=== PATIENT | female | born 1950 | race Caucasian/White ===

== ENCOUNTER 2022-02-13 00:15 | Observation (INO) | payer MEDICARE, SELFPAY ==
[2022-02-13] VITALS (21 sets, daily range): BP systolic 103–153; BP diastolic 48–78; PULSE 75–107; RESP 14–22; TEMP 36.8–38.1; O2SAT 86–99; BMI 37.3; BMI 38.0
--- NOTE | 2022-02-13 00:24 | XR_ITS ---
PROCEDURE INFORMATION: Exam: XR Chest Exam date and time: 02/13/2022 12:49 AM Age: 71 years old Clinical indication: Fever TECHNIQUE: Imaging protocol: Radiologic exam of the chest. Views: 1 view. COMPARISON: No relevant prior studies available. FINDINGS: Tubes, catheters and devices: Thoracic spine neurostimulator is in place. Lungs: There is mild left lower lobe infiltrate versus atelectasis. The right lung is clear. Pleural spaces: Unremarkable. No pleural effusion. No pneumothorax. Heart/Mediastinum: There is mediastinal prominence suggesting ectasia and/or tortuosity of the thoracic aorta. Atherosclerotic calcification of the aorta noted. Bones/joints: Bilateral shoulder prostheses are noted. Moderate degenerative changes noted in the thoracic spine. IMPRESSION: 1. Mild left lower lobe infiltrate versus atelectasis 2. Mediastinal prominence suggesting ectasia and/or tortuosity of the thoracic aorta.
[2022-02-13 00:30] LABS: ABG Base Excess -1.8 mmol/L (-2.4-2.3); ABG HCO3 22.7 mmhg (22.0-26.0); ABG Oxygen Saturation 98 % (90-100); ABG PCO2 35.7 mmhg (35.0-45.0); ABG PH 7.42 mmol/L (7.35-7.45); ABG PO2 121.6 mmhg (80-100); ABG TCO2 23.8 mmhg (23-27)
[2022-02-13 00:31] LABS: Allen's Test Y; Oxygen 4 %; Source Right Radial
--- NOTE | 2022-02-13 00:46 | CT_ITS ---
PROCEDURE INFORMATION: Exam: CT Left Lower Extremity Without Contrast; Lower Leg Exam date and time: 02/13/2022 12:57 AM Age: 71 years old Clinical indication: Edema; Location not specified; Additional info: Wound TECHNIQUE: Imaging protocol: CT of the Left lower extremity without contrast was performed. Exam focused on the lower leg. Radiation optimization: All CT scans at this facility use at least one of these dose optimization techniques: automated exposure control; mA and/or kV adjustment per patient size (includes targeted exams where dose is matched to clinical indication); or iterative reconstruction. COMPARISON: No relevant prior studies available. FINDINGS: Bones/joints: Bones are diffusely osteopenic. Left knee prosthesis is partially visualized. No periostitis, osseous erosion or other findings concerning for osteomyelitis seen. No acute fracture seen. Orthopedic screws noted in the calcaneus. Soft tissues: There is diffuse soft tissue swelling at the anterolateral aspect of the left lower leg and ankle. Soft tissue ulceration is noted along the superior margin of the area of soft tissue edema. No abnormal fluid collection seen within the soft tissues. Vasculature: Small-vessel arterial calcification is noted about the ankle IMPRESSION: Soft tissue swelling and ulceration noted at the anterolateral aspect of the left lower leg and ankle compatible with soft tissue infection. No evidence of abscess or osteomyelitis seen.
[2022-02-13 00:51] LABS: Microscopic, Urine URINE MICROSCOPIC (MICROSCOPIC)
--- NOTE | 2022-02-13 00:51 | PC.NURSE ---
Pt left room for CT @ this time.
--- NOTE | 2022-02-13 00:51 | PC.WOUNDNOTE ---
pt has skin tears to Rt forearm and Lt upper arm, lt lower leg
[2022-02-13 00:53] LABS: Basophils # 0.1 K/mm3 (0-0.2); Basophils % 0.3 % (0.1-2.0); Eosinophils # 0.2 K/mm3 (0.0-0.4); Eosinophils % 1.4 % (0.1-12.0); Hematocrit 31.2 % (37.0-47.0); Hemoglobin 9.8 g/dL (12.2-16.2); Lymphocytes # 1.1 K/mm3 (0.7-4.5); Lymphocytes % 6.5 % (10-50); Mean Corpuscular HGB Conc 31.5 g/dL (31.8-35.4); Mean Corpuscular Hemoglobin 30.1 pg (27.0-31.2); Mean Corpuscular Volume 95.6 fl (81-99); Mean Platelet Volume 9.3 fl (7.4-10.4); Monocytes # 0.4 K/mm3 (0.1-1.0); Monocytes % 2.3 % (1.7-9.3); Neutrophils # 15.1 K/mm3 (1.8-7.8); Neutrophils % 89.6 % (37.0-80.0); Platelet Count 350 K/mm3 (142-424); Red Blood Count 3.27 M/mm3 (4.20-5.40); Red Cell Distribution Width 16.6 % (11.5-17.5); White Blood Count 16.8 K/mm3 (4.8-10.8)
--- NOTE | 2022-02-13 00:54 | HMH.EDFEV ---
Discharge Plan Disposition Chief Complaint: Fever Clinical Impressions Clinical Impression: Cellulitis, SIRS (systemic inflammatory response syndrome) Discharge ED Provider: Praful Mckenna Fever HPI General Chief Complaint: Fever Stated Complaint: fever Time Seen by Provider: 02/13/22 00:54 Mode of Arrival: EMS Source of Information: Patient, EMS and Medical Record Limitations: No Limitations Description of Symptoms (Recalled from ER Triage Doc. by RN): [facility] send pt in due to fever and low o2 sat. pt has no c/o. pt has multiple skin tears from a previous fall at home before re admission to [facility]. History of Present Illness HPI Narrative: sent from [facility] for eval of fever and low o2 sat - pt has hx of lt lower ext skin tear - - no chest or abd pain reported by pt MD complaint: fever and weakness Onset (ago): hour(s) Associated symptoms: denies other symptoms Related Data Previous Rx's Medication Instructions Recorded gabapentin 300 mg capsule 300 mg PO TID PRN pain #90 caps 01/23/22 oxycodone-acetaminophen 5 mg-325 1 tab PO Q6H PRN pain #14 tabs 02/11/22 mg tablet (Percocet) Allergies Allergy/AdvReac Type Severity Reaction Status Date / Time adhesive tape Allergy Verified 02/13/22 00:31 mirtazapine [From Remeron] Allergy Verified 02/13/22 00:31 naproxen Allergy Verified 02/13/22 00:31 oxaprozin Allergy Verified 02/13/22 00:31 pantoprazole [From Protonix] Allergy Verified 02/13/22 00:31 polyethylene glycol 3350 Allergy Verified 02/13/22 00:31 [From Miralax] sertraline [From Zoloft] Allergy Verified 02/13/22 00:31 tolmetin [From Tolectin] Allergy Verified 02/13/22 00:31 [facility] Disclaimer: The information contained in this section may have been updated after the patient was seen, as this information can be updated by other users. Social History Smoking Status: Never smoker alcohol intake: never current occupational status: retired Travel in the last 8 weeks: None ROS Obtained: Yes All systems reviewed & no additional complaints except as documented Physical Exam General General appearance: alert and obese Head Head exam: normocephalic Eye Eye exam: Present PERRL and EOMI ENT ENT exam: Present mucous membranes moist Neck Neck exam: Absent trachea midline Respiratory Respiratory exam: Present other (dec bs bilat ) Cardiovascular Cardiovascular exam: Present regular rate, systolic murmur and +S4 Abdominal Exam Abdominal exam: Present soft; Absent tenderness Extremities Exam Extremities exam: Present edema Neurological Exam Neurological exam: Present alert and CN II-XII intact Skin Skin exam: Present other (has open area lt lower leg with odor and tenderness - skin tear rt upper ext ) Medical Decision Making Medical Records Medical records reviewed: Yes I reviewed the patient's medical records. Wang Inquiry Pt receiving controlled substance: No Vital Signs: 02/13/22 00:15 02/13/22 00:30 Temperature 100.5 F H Temperature Source Rectal Pulse Rate 85 Pulse Rate [Right] 91 H Respiratory Rate 22 Blood Pressure 136/59 L Blood Pressure [Right Arm] 125/55 L Blood Pressure Mean [Right Arm] 78 02 Sat by Pulse Oximetry 86 L 93 L Oxygen Delivery Method Room Air Lab Data Lab results reviewed: Yes I reviewed the patient's lab results. Lab Results 02/13/22 00:24: Specimen Source Right radial, O2 % 4, ABG pH 7.42, ABG pCO2 35.7, ABG pO2 121.6 H, ABG HCO3 22.7, ABG Total CO2 23.8, ABG O2 Saturation 98, ABG Base Excess -1.8, Curtis Test Y 02/13/22 00:34: WBC 16.8 H, RBC 3.27 L, Hgb 9.8 L, Hct 31.2 L, MCV 95.6, MCH 30.1, MCHC 31.5 L, RDW 16.6, Plt Count 350, MPV 9.3, Neut % (Auto) 89.6 H, Lymph % (Auto) 6.5 L, [place] % (Auto) 2.3, Eos % (Auto) 1.4, Baso % (Auto) 0.3, Neut # (Auto) 15.1 H, Lymph # (Auto) 1.1, [place] # (Auto) 0.4, Eos # (Auto) 0.2, Baso # (Auto) 0.1, Total Counted 100, Neutrophils % (Manual) 82 H, Band Neutrophils % 6.0, Lymphocyte
[2022-02-13 00:55] LABS: MANUAL DIFFERENTIAL MANUAL DIFFERENTIAL (MANUAL DIFF)
[2022-02-13 01:00] LABS: Appearance,Urine SL CLOUDY (Clear); Bilirubin,Urine Negative (Negative); Blood, Urine Negative (Negative); Color,Urine YELLOW (Yellow); Glucose,Urine (UA) Negative (Negative); Ketones,Urine Negative (Negative); Leukocyte Esterase,Urine TRACE (Negative); Nitrate,Urine Negative (Negative); PH,Urine 5.5 (5.0-8.5); Protein,Urine TRACE (Negative); Specific Gravity, Urine 1.015 (1.005-1.030); Urobilinogen,Urine 0.2 EU/dl (0.2)
[2022-02-13 01:05] LABS: Alanine Aminotransferase 28 U/L (12-78); Albumin Level 3.3 g/dl (3.5-5.0); Alkaline Phosphatase 94 U/L (38-126); Anion Gap 12.3 mEq/L (5-15); Aspartate Amino Transferase 40 U/L (14-36); Bilirubin,Total 1.2 mg/dl (0.2-1.3); Blood Urea Nitrogen 32 mg/dl (7-17); Calcium 8.5 mg/dl (8.4-10.2); Carbon Dioxide 25 mmol/L (22.0-30.0); Chloride 102 mmol/L (98-107); Creatinine Clearance Estimated 69 mL/min (50-200); Estimated Glomerular Filt Rate 54 ml/min (>60); GFR (African American) 66 ML/MIN (>60); Globulin 3.2 g/dL (1.3-3.2); Glucose 184 mg/dl (74-100); Lactic Acid 1.6 mmol/L (0.7-2.1); Potassium 4.3 mmoL/L (3.5-5.1); Sodium 135 mmol/L (136-145); Total Protein,Serum 6.5 g/dl (6.3-8.2)
[2022-02-13 01:08] LABS: Amorphous Sediment,Urine 4+ /lpf
[2022-02-13 01:10] LABS: C-Reactive Protein 279.9 mg/L (0-4)
[2022-02-13 01:12] LABS: Anisocytosis 1+; Eosinophils % 1 % (0-3); Hypochromasia 1+; Lymphocytes % 10 % (10-50); Monocytes % 1 % (2-9); Neutrophils % 82 % (42-76); Platelet Estimate Normal; Total Cells Counted 100
[2022-02-13 01:16] LABS: NT Pro Brain Natriuretic Pep. 370 pg/mL (0-125)
[2022-02-13 01:22] LABS: Coronavirus 19, PCR Not Detected (NotDetected); Influenza A, PCR Not Detected (NotDetected); Influenza B, PCR Not Detected (NotDetected)
[2022-02-13 01:23] LABS: Procalcitonin 1.48 ng/mL (0.0-2.0)
[2022-02-13 01:27] LABS: Erythrocyte Sedimentation Rate 132 mm/hr (0-30)
--- NOTE | 2022-02-13 02:28 | EXP.HP ---
History of Present Illness *Admission Date: 02/13/22 *Reason for visit:: Fevers *History of present illness: Ms. Hicks is a 71-year-old female who presented to [facility] on 02/12/2021 from [facility] due to fevers and low oxygen saturations at the facility. [facility] that resulted in a Left Lower extremity fracture to undergo PT/OT. She reports feeling tired, having shortenss of air and chills over the last day. In the ER, the patient was noted to have wounds on her bilateral lower extremity with some drainage to the wound on the left lower extremity. CT of the LLE showed some soft tissue swelling and ulceration of the anteriolateral aspect of the left lower extremity and ankle compatible with infection. CRP was elevated at 279.0. Cxray showed a mild left lower lobe infiltrate. On admission the patient meets sepsis criteria. She is started on broad spectrum antibiotics. Cultures will be drawn. The plan of care was discussed with the patient in length and detail at bedside in the ER. She verbalized understanding and agreement with the plan of care. [facility] Disclaimer: The information contained in this section may have been updated after the patient was seen, as this information can be updated by other users. Medical History (Updated 02/13/22 @ 02:42 by Ritesh Stevens DNP) Hyperlipidemia Hypertension Surgical History (Updated 02/13/22 @ 02:41 by Ritesh Stevens DNP) H/O: hysterectomy History of appendectomy History of hip replacement Social History Smoking Status: Never smoker alcohol intake: never current occupational status: retired Travel in the last 8 weeks: None Review of Systems Review of Systems Review of systems:: pertinent systems reviewed and negative unless documented below Constitutional Constitutional: Reports body ache(s) and Reports chills Eyes Eyes: Reports system reviewed and no additional complaints, except as documented ENT Ears, Nose, Mouth, and Throat: Reports system reviewed and no additional complaints, except as documented *Cardiovascular Cardiovascular: Reports dyspnea *Respiratory Respiratory: Reports cough and Reports dyspnea *Gastrointestinal Gastrointestinal: Reports system reviewed and no additional complaints, except as documented *Genitourinary Genitourinary: Reports system reviewed and no additional complaints, except as documented *Musculoskeletal Musculoskeletal: Reports system reviewed and no additional complaints, except as documented Integumentary/Breasts Skin/Breast: Reports system reviewed and no additional complaints, except as documented *Neurologic Neurologic: Reports system reviewed and no additional complaints, except as documented Psychiatric Psychiatric: Reports system reviewed and no additional complaints, except as documented Endocrine Endocrine: Reports system reviewed and no additional complaints, except as documented Hematologic/Lymphatic Hematologic/Lymphatic: Reports system reviewed and no additional complaints, except as documented Allergic/Immunologic Allergic/Immunologic: Reports system reviewed and no additional complaints, except as documented Meds Home Medications and Allergies Home Medications Medication Instructions Recorded Confirmed Type gabapentin 300 mg capsule 300 mg PO TID PRN pain #90 caps 01/23/22 Rx oxycodone-acetaminophen 5 mg-325 1 tab PO Q6H PRN pain #14 tabs 02/11/22 Rx mg tablet (Percocet) New Prescriptions to Start Prescriptions: Allergies Allergy/AdvReac Type Severity Reaction Status Date / Time adhesive tape Allergy Verified 02/13/22 00:31 mirtazapine [From Remeron] Allergy Verified 02/13/22 00:31 naproxen Allergy Verified 02/13/22 00:31 oxaprozin Allergy Verified 02/13/22 00:31 pantoprazole [From Protonix] Allergy Verified 02/13/22 00:31 polyethyle
--- NOTE | 2022-02-13 07:59 | PC.NURSE ---
SANDRA louise at to transport pt to second floor.
--- NOTE | 2022-02-13 08:42 | EXP.PHA.CONS ---
Pharmacy Consult Date: 02/13/22 Time: 08:44 Referring provider: DR MORENITA CONWAY Reason for Consult:: VANCOMYCIN DOSING CONSULT Allergies Allergy/AdvReac Type Severity Reaction Status Date / Time adhesive tape Allergy Verified 02/13/22 00:31 mirtazapine [From Remeron] Allergy Verified 02/13/22 00:31 naproxen Allergy Verified 02/13/22 00:31 oxaprozin Allergy Verified 02/13/22 00:31 pantoprazole [From Protonix] Allergy Verified 02/13/22 00:31 polyethylene glycol 3350 Allergy Verified 02/13/22 00:31 [From Miralax] sertraline [From Zoloft] Allergy Verified 02/13/22 00:31 tolmetin [From Tolectin] Allergy Verified 02/13/22 00:31 Home Medications Medication Instructions Recorded Confirmed Type gabapentin 300 mg capsule 300 mg PO TID PRN pain #90 caps 01/23/22 Rx oxycodone-acetaminophen 5 mg-325 1 tab PO Q6H PRN pain #14 tabs 02/11/22 Rx mg tablet (Percocet) New Prescriptions to Start Prescriptions: Height: 1.52 m Weight: 86.636 kg Laboratory Results:: Laboratory Results - last 24 hr 02/13/22 00:24: Specimen Source Right radial, O2 % 4, ABG pH 7.42, ABG pCO2 35.7, ABG pO2 121.6 H, ABG HCO3 22.7, ABG Total CO2 23.8, ABG O2 Saturation 98, ABG Base Excess -1.8, Curtis Test Y 02/13/22 00:34: WBC 16.8 H, RBC 3.27 L, Hgb 9.8 L, Hct 31.2 L, MCV 95.6, MCH 30.1, MCHC 31.5 L, RDW 16.6, Plt Count 350, MPV 9.3, Neut % (Auto) 89.6 H, Lymph % (Auto) 6.5 L, [place] % (Auto) 2.3, Eos % (Auto) 1.4, Baso % (Auto) 0.3, Neut # (Auto) 15.1 H, Lymph # (Auto) 1.1, [place] # (Auto) 0.4, Eos # (Auto) 0.2, Baso # (Auto) 0.1, Total Counted 100, Neutrophils % (Manual) 82 H, Band Neutrophils % 6.0, Lymphocytes % (Manual) 10, Monocytes % (Manual) 1 L, Eosinophils % (Manual) 1, Platelet Estimate Normal, Hypochromasia 1+, Anisocytosis 1+, ESR 132 H 02/13/22 00:34: Sodium 135 L, Potassium 4.3, Chloride 102, Carbon Dioxide 25, Anion Gap 12.3, BUN 32 H, Creatinine 1.00, Estimated Creat Clear 69, Estimated GFR 54 L, Est GFR ( Amer) 66, Glucose 184 H, Calcium 8.5, Total Bilirubin 1.2, AST 40 H, ALT 28, Alkaline Phosphatase 94, C-Reactive Protein 279.9 H, NT-Pro-B Natriuret Pep 370 H, Total Protein 6.5, Albumin 3.3 L, Globulin 3.2, Albumin/Globulin Ratio 1.0 L, Procalcitonin 1.48 02/13/22 00:34: Lactate 1.6 02/13/22 00:34: Urine Color Yellow, Urine Appearance Sl cloudy, Urine pH 5.5, Ur Specific [place] 1.015, Urine Protein Trace, Urine Glucose (UA) Negative, Urine Ketones Negative, Urine Blood Negative, Urine Nitrate Negative, Urine Bilirubin Negative, Urine Urobilinogen 0.2, Ur Leukocyte Esterase Trace, Urine WBC 10-20, Amorphous Sediment 4+ 02/13/22 01:06: SARS-CoV-2 (PCR) Not detected, Influenza A Untype (PCR) Not detected, Influenza Type B (PCR) Not detected Medical History: Medical History (Updated 02/13/22 @ 02:42 by Ritesh Stevens DNP) Hyperlipidemia Hypertension Assessment and Plan Assessment and plan all Dx Assessment and Plan for all problems:: Pharmacokinetic dosing service Objective: Age: 71 yo Serum creatinine: 1.0 mg/dL Height: 60.0 Inches Weight (kg): 86.636 Diagnosis: CELLULITIS Assessment: IBW (kg): 45.50 Dosing wt(kg): 62.0 Estimated Creatinine clearance (ml/min): 36.0 CRCL method: Cockcroft and Gault using ibw(default). Drug selected: Vancomycin Vd (liters): 46.5 (factor used: 0.75 L/kg) Gene (hr-1): 0.034 Half life (hrs): 20.39 CLvanco=?? 1.581 L/hr Recommended dose: 1250 mg Interval: 36 hrs Infusion time (hrs): 2.0 Predicted peak (mcg/mL): 36.8 Predicted trough (mcg/mL): 11.58 Adjusted body weight was selected for vancomycin dosing. Recommendations: Give Vancomycin 1250 mg q 36 hrs with an expected Cpeak of 36.8 mcg/ml and an expected Ctrough of 11.58 mcg/ml TO START 02/14/22 AT 0300. PATIENT RECEIVED A ONE-TIME [facility]
--- NOTE | 2022-02-13 08:52 | CT_ITS ---
FINAL REPORT CLINICAL HISTORY: aorta ectasia FINDINGS: CT OF THE ABDOMEN AND PELVIS WITH CONTRAST Axial CT images of the abdomen and pelvis were obtained after the administration of intravenous contrast. Coronal reformatted images were also obtained and reviewed.This study was performed with techniques to keep radiation doses as low as reasonably achievable (ALARA). Individualized dose reduction techniques using automated exposure control or adjustment of mA and/or kV according to the patient's size were employed. Abdomen: There is scarring in the lung bases. The heart is normal in size. The liver has a sub cm cyst in the left hepatic lobe. There are probable gallstones with mild gallbladder wall thickening. The spleen is unremarkable. No adrenal mass is present. The pancreas has an unremarkable appearance. There is a 1.1 cm cyst in the right kidney. There is left renal cortical thinning. There is no free fluid or adenopathy. There is a partially imaged 3.7 cm descending thoracic aortic aneurysm with moderate mural thrombus. There is a 2.1 cm saccular aneurysm of the descending thoracic aorta. There is a 1.3 cm saccular aneurysm of the upper right abdominal aorta. There is a left suprarenal saccular aneurysm measuring 1.3 cm. There is a 4.8 cm infrarenal abdominal aortic aneurysm with a large amount of thrombus. There is increased attenuation within the thrombus favoring calcification. There is a small periumbilical hernia containing fat. Pelvis: The appendix is not well-visualized. There is a Cedillo catheter in urinary bladder. There is diverticulosis of the sigmoid colon. Postoperative changes involving both hips causes streak artifact. IMPRESSION: 4.8 cm infrarenal abdominal aortic aneurysm with a large amount of thrombus. Multiple saccular aneurysms as described. Partially imaged 3.7 cm descending thoracic aortic aneurysm. Reviewed, Interpreted and Dictated by Marcell Colvin III, MD Transcribed by Jose Guadalupe Schroeder Authenticated and [facility]
--- NOTE | 2022-02-13 08:52 | CA_ITS ---
APPROVED REPORT EXAM: Comprehensive 2D, Doppler, and color-flow Echocardiogram Hand Rug Braider: Radha Traylor RT(R) Ht: 5 ft 0 in Wt: 191lbs BSA: 1.83 BP: 136/59 mmHg Indications: aorta disease, HTN, hyperlipidemia, pneumonia, left leg cellulitis 2D Dimensions Aortic Root 1.85 cm F: 2.7 - 3.3 M-Mode Dimensions RVDd 2.32 cm (0.9-2.6) LA Diam 4.41 cm (1.9-4.0) LVDd 4.67 cm (3.5-5.7) Ao Diam 3.41 cm (2.0-3.7) LVDs 3.61 cm (3.5-5.7) IVSd 0.76 cm (0.6-1.1) PWd 0.84 cm (0.6-1.1) EF (Teich) 45.60% FS 22.70% EDV (Teich) 100.80 mL ESV (Teich) 54.80 mL LV Diastology E Decel Time 167.00 (160-240 msec) E/A Ratio 1.0 MED E' 7.10 (< 7 cm/sec) E'/MED E' Ratio 11.45 (>14) LAT E' 9.30 (<10 cm/sec) E/LAT E' Ratio 8.74 (>14) Mitral Valve MV E Max Júnior. 81.00 (40-130 cm/s) MV A Velocity 82.00 (40-130 cm/s) E/A Ratio 0.99 MV Decel. Time 167.00 (160-240 ms) MV PHT 49.00 ms Left Ventricle Left atrium is mildly enlarged, left ventricle is normal size mild concentric left ventricular hypertrophy, estimated ejection fraction 55% with no regional wall motion abnormality, grade 2 diastolic dysfunction seen without tissue Doppler evidence of raise left atrial pressure. Right Ventricle Right atrium and right ventricle are mildly enlarged with normal contractility. Aortic Valve Aortic valve is thickened and calcified without significant aortic stenosis or aortic insufficiency. Mitral Valve Mitral valve leaflets are minimally thickened, there is mild mitral regurgitation. Tricuspid Valve Tricuspid valve is grossly normal, there is mild tricuspid regurgitation, tricuspid regurgitation jet velocity is inadequate for calculation of the right ventricular systolic pressure. Pulmonic Valve Pulmonic valve is poorly visualized. Great Vessels Aortic root is normal size. Inferior vena cava is poorly visualized. Pericardium No significant pericardial effusion noted. Conclusion 1. Mild biatrial enlargement, normal left ventricular size mild concentric left ventricular hypertrophy, estimated ejection fraction 55% with no regional wall motion abnormality, grade 2 diastolic dysfunction seen without tissue Doppler evidence of raise left atrial pressure. 2. Mild mitral and tricuspid regurgitation. 3. No significant pericardial effusion noted. 4. Inferior vena cava is poorly visualized. Electronically signed by : Christopher Nicholas MD 02/13/2022 22:08:41
--- NOTE | 2022-02-13 08:58 | SW/DCPLANNER ---
Addendum entered by Alba Lopez RN 02/16/22 11:36: Patient discharging today to [facility]. DC summary faxed to Rebekah @ . No Covid swab is required. Addendum entered by Alba Lopez RN 02/15/22 12:30: Patient is medically ready for discharge, but will require a pre-cert from insurance. Clinical faxed to [facility] today, likely discharge tomorrow. Original Note: This patient currently resides at [facility] level of care. I will continue to follow up with Rebekah from [facility] until patient is medically stable for discharge.
--- NOTE | 2022-02-13 11:54 | CA_ITS ---
FINAL REPORT TECHNIQUE: Grayscale and color Doppler ultrasound images with graded compression of the deep venous system were obtained from the groin to the calf veins bilaterally. CLINICAL HISTORY: cellulitis of Left leg FINDINGS: The deep venous system is normal. There is no evidence of DVT. Flow and compressibility are normal. IMPRESSION: No evidence of left or right lower extremity DVT. Reviewed, Interpreted and Dictated by Marcell Colvin III, MD Transcribed by Jose Guadalupe Schroeder Authenticated and [facility]
--- NOTE | 2022-02-13 11:59 | XR_ITS ---
FINAL REPORT CLINICAL HISTORY: foot fracture ? Pain and swelling FINDINGS: LEFT FOOT Two views of the left foot demonstrate no acute fracture or dislocation. There is a chronic fracture of the 2nd metatarsal. The visualized joint spaces are normally aligned. There is hallux valgus deformity. There are mild degenerative changes. There are postoperative changes from talocalcaneal fusion. The soft tissues are unremarkable. IMPRESSION: No acute bony abnormality. Reviewed, Interpreted and Dictated by Marcell Colvin III, MD Transcribed by Calli Tapia Authenticated and [facility]
--- NOTE | 2022-02-13 13:47 | EXP.ORTH.CON ---
History of Present Illness *Admission Date: 02/13/22 *History of present illness: Ms. Hicks is a 71-year-old female who presented to [facility] on 02/12/2021 from [facility] due to fevers and low oxygen saturations at the facility. The patient reports that she is at the [place] undergoing PT falling a fall that resulted in a Left Lower extremity fracture to undergo PT/OT. She reports feeling tired, having shortenss of air and chills over the last day. In the ER, the patient was noted to have wounds on her bilateral lower extremity with some drainage to the wound on the left lower extremity. CT of the LLE showed some soft tissue swelling and ulceration of the anteriolateral aspect of the left lower extremity and ankle compatible with infection but no evidence of abscess. CRP was elevated at 279.0. Orthopedics consulted regarding left lower extremity wound. She reports that the pain is slightly better than previous. She also reports that this wound started after a fall. She is unsure how its progressed over the last couple days. [facility] Disclaimer: The information contained in this section may have been updated after the patient was seen, as this information can be updated by other users. Medical History (Updated 02/13/22 @ 13:53 by Carson Nevarez DO) Hyperlipidemia Hypertension Surgical History (Updated 02/13/22 @ 13:50 by Carson Nevarez DO) H/O: hysterectomy History of appendectomy History of foot surgery History of hip replacement History of knee replacement procedure of left knee History of knee replacement procedure of right knee Social History Smoking Status: Never smoker alcohol intake: never current occupational status: retired Travel in the last 8 weeks: None Review of Systems Constitutional Constitutional: Reports as per HPI Eyes Eyes: Reports system reviewed and no additional complaints, except as documented *Cardiovascular Cardiovascular: Denies chest pain with activity and Reports dyspnea *Respiratory Respiratory: Reports dyspnea *Gastrointestinal Gastrointestinal: Reports system reviewed and no additional complaints, except as documented *Musculoskeletal Musculoskeletal: Reports as per HPI *Neurologic Neurologic: Reports system reviewed and no additional complaints, except as documented Meds Home Medications and Allergies Home Medications Medication Instructions Recorded Confirmed Type Saccharomyces boulardii 250 mg 250 mg PO BID Bowel maintenance 02/13/22 02/13/22 History capsule (Florastor) acetaminophen 500 mg tablet 500 mg PO Q6H PRN Fever or mild 02/13/22 02/13/22 History pain amiodarone 100 mg tablet 100 mg PO DAILY Heart disease 02/13/22 02/13/22 History amlodipine 5 mg tablet 5 mg PO DAILY High blood pressure 02/13/22 02/13/22 History aspirin 81 mg chewable tablet 81 mg PO DAILY Heart disease/Blood 02/13/22 02/13/22 History thinner atorvastatin 80 mg tablet 80 mg PO HS Cholesterol 02/13/22 02/13/22 History bisacodyl 5 mg tablet,delayed 10 mg PO DAILY Bowel maintenance 02/13/22 02/13/22 History release bismuth tribrom-petrolatum,wh 4 X 02/13/22 02/13/22 History 4 bandage (Xeroform Petrolatum Dressing) duloxetine 30 mg capsule,delayed 30 mg PO DAILY Depression 02/13/22 02/13/22 History release famotidine 20 mg tablet 20 mg PO DAILY Heartburn 02/13/22 02/13/22 History ferrous sulfate 325 mg (65 mg 325 mg PO BID Iron supplement 02/13/22 02/13/22 History iron) tablet (FeroSul) folic acid 1 mg tablet 1 mg PO DAILY Supplement 02/13/22 02/13/22 History gabapentin 300 mg capsule 300 mg PO DAILY Neuropathy 02/13/22 02/13/22 History lansoprazole 30 mg capsule,delayed 30 mg PO DAILY Acid reflux 02/13/22 02/13/22 History release melatonin 5 mg tablet 5 mg PO HS Sleep 02/13/22 02/13/22 History methotrexate sodium 2.5 mg tablet 15 mg PO WEEKLY Arthritis 02/13/22 02/13/22 History
--- NOTE | 2022-02-13 14:11 | P.CONPHA_ITS ---
Pharmacy Intervention Comments: Medication reconciliation completed on patient using MAR from [facility]. -Yancy Moe, PharmD Candidate 2022
--- NOTE | 2022-02-13 14:11 | HMH.PHAINT1 ---
Pharmacy Intervention Comments: Medication reconciliation completed on patient using MAR from [facility]. -Yancy Moe, PharmD Candidate 2022
--- NOTE | 2022-02-13 14:50 | EXP.CARD.CON ---
History of Present Illness History of Present Illness Consult date: 02/13/22 Requesting physician: Javi Tovar Chief complaint: LLE cellulitis, AAA Additional Medical History:: 1. Multiple orthopedic procedures of the shoulders hips knees and feet. 2. Left lower extremity cellulitis after recent fall [facility] which [facility] was [facility] getting PT. 3. History of abdominal aortic aneurysm being followed by vascular surgery in [place] at [facility] 4. Cardiovascular issues being followed yearly by Dr. Eliecer Reyna at [facility] in [place]. 5. Rheumatoid arthritis with arthritic changes of the hands 6. Hypertension 7. Hyperlipidemia 8. Remote history of tobacco use History of present illness: Ms. Hicks is a 71-year-old female who presented to [facility] on 02/12/2021 from [facility] due to fevers and low oxygen saturations at the facility.? The patient reports that she is at the [place] undergoing PT falling a fall that resulted in a Left Lower extremity fracture to undergo PT/OT.? She reports feeling tired, having shortenss of air and chills over the last day.? In the ER, the patient was noted to have wounds on her bilateral lower extremity with some drainage to the wound on the left lower extremity.? CT of the LLE showed some soft tissue swelling and ulceration of the anteriolateral aspect of the left lower extremity and ankle compatible with infection.? CRP was elevated at 279.0.? Cxray showed a mild left lower lobe infiltrate.? On admission the patient meets sepsis criteria.? She is started on broad spectrum antibiotics.? Cultures will be drawn.? The plan of care was discussed with the patient in length and detail at bedside in the ER.? She verbalized understanding and agreement with the plan of care. The above per Ritesh Stevens DNP Cardiology consulted due to abdominal scan showing abdominal aortic aneurysm in the infrarenal area. Patient is aware of this and is being followed by vascular surgery in [place]. Echocardiogram ordered today but results pending at this time. 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 Last stress test was about a year ago. She has had a previous left heart catheterization but no need for stents reportedly. PFSH PFSH Disclaimer: The information contained in this section may have been updated after the patient was seen, as this information can be updated by other users. Medical History (Updated 02/13/22 @ 14:56 by DONOVAN Jo) Hyperlipidemia Hypertension Rheumatoid arthritis Surgical History H/O: hysterectomy History of appendectomy History of foot surgery History of hip replacement History of knee replacement procedure of left knee History of knee replacement procedure of right knee Social History (Updated 02/13/22 @ 14:30 by Mari Mcwilliams RN) Smoking Status: Never smoker alcohol intake: never current occupational status: retired Travel in the last 8 weeks: None Review of Systems Review of Systems Review of systems:: pertinent systems reviewed and negative unless documented below *Cardiovascular Cardiovascular: Denies chest pain and Reports dyspnea *Respiratory Respiratory: Reports dyspnea *Gastrointestinal Gastrointestinal: Denies change in bowel habits *Neurologic Neurologic: Reports system reviewed and no additional complaints, except as documented Exam Data for Last 24 hours Vital signs and Labs for Last 24 Hours: Temp Pulse Resp BP Pulse Ox 98.3 F 89 16 153/78 H 97 02/13/22 12:00 02/13/22 12:00 02/13/22 12:00 02/13/22 12:00 02/13/22 12:00 Laboratory Results - last 24 hr 02/13/22 00:24: Specimen Source Right radial, O2 % 4, ABG pH 7.42, ABG pCO2 35.7, ABG pO2 121.6 H, ABG HCO3 22.7, ABG Total CO2 23.8, ABG O2 Saturatio
--- NOTE | 2022-02-13 16:24 | HMH.PTWOUND ---
Rehab Inpt Wound Evaluation Rehab IP Wound Evaluation Start: 02/13/22 11:57 Freq: ONCE Status: Active Protocol: Document 02/13/22 16:14 PHORTRISTON (Rec: 02/13/22 16:24 PHORNE [id number]) Rehab PT Wound Assessment Subjective Subjective 71 yowf adm to [facility] from short term rehab with cellulitis of L LE with open wound to anterior lateral ma. She reports she fell several wks ago with resulting broken bone in her foot (X-rays suggest a chronic fx of 2nd metatarsal . ). Pt is unsure of exact wound etiology though if it occured during her fall or as a result of the cam walker she was supposed to wear. She reports she lives with a friend and is generally independent with all mobility. Wound Left Posterior Lateral Ma Wound Type Skin Tear Is This a Chronic Wound Yes Wound Length (cm) 9.0 Wound Width (cm) 5.3 Wound Depth (cm) 0.7 Wound Bed Appearance Beefy Red,Yellow Percentage Granulated (%) 95 Percentage of Slough (%) 5 Wound Margins Description Well Defined Surrounding Tissue Appearance Stickney,Dark Red,Purple Edema Type Pitting Edema Degree 2+ Query Text:1+ Trace, Barely Detectable, Rebound 15-30 seconds 2+ Moderate, Slight Indentation, Rebound 10-20 seconds 3+ Deep, Deeper Indentation, Rebound > 30 seconds 4+ Very Deep, Rebound > 60 seconds Edema Appearance Puffy Wound Drainage Description Serous Drainage Amount Moderate Primary Dressing Silver Dressing Comment opticell Ag Wound Secondary Dressing Type Composite Comment optifoam gentle border SA Wound Debridement Method Gauze Wound Debridement Amount of Tissue Minimal Removed Dressing Change Patient Tolerance Tolerated Well Plan/Recommendation Comment Will continue to follow for proper dressing needs as necessary. Currently only a small area of the full wound bed is full thickness and VAC dressing may not be necessary. Will follow and change
--- NOTE | 2022-02-13 18:41 | EXP.EVENT.NO ---
Rounds update S: Having some severe bilateral leg pain requesting analgesia. O: Febrile. Bilateral edema and blisters and excoriations on both legs. Left leg worse than right leg. Oozing bilaterally. Elevated CRP. A/p: This appears like venous stasis or congestion resulting in breakdown of the skin with superficial infection particularly worse on the left leg.I suspect she will need significant diuresis to reduce the swelling in her lower extremities so that the skin can be appropriately healed. We will continue antibiotics for cellulitis at this time. Ortho consulted for wound management recommending aggressive local wound care and no surgical intervention at this time. Cardiology consulted for aorta disease and suspected heart failure as well as A. fib.
[2022-02-14 03:58] VITALS: BP 125/57; PULSE 100; RESP 18; TEMP 36.9; O2SAT 92; BMI 36.9
--- NOTE | 2022-02-14 04:55 | PC.NURSE ---
verified vanc dose with [facility].
[2022-02-14 07:58] VITALS: BP 136/76; PULSE 106; RESP 18; TEMP 36.7; O2SAT 100
--- NOTE | 2022-02-14 08:36 | ECG_ITS ---
APPROVED REPORT Exam: Resting ECG HR:107 bpm ECG Measurements Heart Rate 107 AXES WV 170 P -23 QRSd 89 QRS 8 QT 323 T 159 QTc 386 Conclusion SINUS TACHYCARDIA NONSPECIFIC ST & T-WAVE ABNORMALITY ABNORMAL ECG UNCONFIRMED REPORT Electronically signed by : Ron Dumas MD 02/14/2022 10:02:19
[2022-02-14 09:20] VITALS: PULSE 89; RESP 18
--- NOTE | 2022-02-14 10:24 | EXP.CARD.PN ---
Subjective Subjective Date: 02/14/22 Time: 10:34 Principal diagnosis: cellulitis of LLE, diastolic CHF, AAA Interval history: 71 yo WF in bed in NAD. Significant diuresis after IV lasix last night and this AM. Breathing has improved. Echo shows normal LV function at 55% with grade 2 DD. Exam Data for Last 24 hours Vital signs and Labs for Last 24 Hours: Temp Pulse Resp BP Pulse Ox 98.1 F 89 18 136/76 100 02/14/22 07:58 02/14/22 09:20 02/14/22 09:20 02/14/22 07:58 02/14/22 07:58 I & O for Last 24 hours: Intake & Output 02/11/22 02/12/22 02/13/22 02/14/22 11:59 11:59 11:59 11:59 Intake Total 2333 / 2333 Output Total 0 / 0 3850 / 3850 Balance 0 / 0 -1517 / -1517 Weight 193 lb 8 oz 188 lb Microbiology Reports for the Last 24 Hours: Microbiology 02/13/22 00:34 Leg,Left Gram Stain - Final 02/13/22 00:34 Leg,Left Wound Culture - Preliminary 02/13/22 00:34 Urine,Catheterized Urine Culture - Preliminary NO GROWTH AFTER 24 HOURS 02/13/22 00:34 Arm,Right Gram Stain - Final 02/13/22 00:34 Arm,Right Wound Culture - Preliminary NO GROWTH AFTER 24 HOURS Constitutional Constitutional: no acute distress *Routine Respiratory Exam Respiratory: Present CTA bilaterally *Routine Cardiovascular Exam Cardiovascular: Present RRR *Routine Extremities Exam Extremities: Present edema Progress Note: A&P Assessment and plan (1) SIRS (systemic inflammatory response syndrome): Status: Acute (2) Hypertension: Status: Acute (3) Hyperlipidemia: Status: Acute (4) Left leg cellulitis: Status: Acute (5) Pneumonia: Status: Acute (6) Abdominal aortic aneurysm (AAA) 3.0 cm to 5.0 cm in diameter in female: Status: Acute (7) Diastolic CHF, acute on chronic: Status: Acute Assessment and Plan Assessment and Plan for All Diagnoses:: 1.? Left lower extremity cellulitis, per hospitalist and Ortho 2.? Infrarenal AAA at 4.8 cm.? Patient states this is being followed by vascular surgery in [facility]. 3.? Pneumonia, per hospitalist 4.? Anemia with Hgb of 9 5.? History of presumed A. fib, continue amiodarone for maintenance of NSR. 6.? Hypertension, controlled on metoprolol 100 mg daily. Would not resume norvasc due to LE edema. 7. Diastolic dysfunction with CHF. Improved clinically with IV lasix. Transition to oral before discharge. Nothing further to add. Please call if needed.
[2022-02-14 10:34] LABS: Chloride 101 mmol/L (98-107); Sodium 139 mmol/L (136-145)
[2022-02-14 10:35] LABS: Basophils % 0.3 % (0.1-2.0); Eosinophils # 0.2 K/mm3 (0.0-0.4); Hematocrit 28.3 % (37.0-47.0); Lymphocytes # 0.8 K/mm3 (0.7-4.5); Lymphocytes % 8.1 % (10-50); Mean Corpuscular HGB Conc 31.9 g/dL (31.8-35.4); Mean Corpuscular Hemoglobin 29.8 pg (27.0-31.2); Mean Corpuscular Volume 93.5 fl (81-99); Mean Platelet Volume 8.8 fl (7.4-10.4); Monocytes # 0.1 K/mm3 (0.1-1.0); Neutrophils % 88.6 % (37.0-80.0); Platelet Count 324 K/mm3 (142-424); Potassium 3.3 mmoL/L (3.5-5.1); Red Blood Count 3.03 M/mm3 (4.20-5.40); Red Cell Distribution Width 16.6 % (11.5-17.5); White Blood Count 10.2 K/mm3 (4.8-10.8)
[2022-02-14 10:37] LABS: Blood Urea Nitrogen 25 mg/dl (7-17); Creatinine Clearance Estimated 67 mL/min (50-200); Estimated Glomerular Filt Rate 54 ml/min (>60); GFR (African American) 66 ML/MIN (>60)
[2022-02-14 10:38] LABS: Anion Gap 10.3 mEq/L (5-15); Calcium 7.9 mg/dl (8.4-10.2); Carbon Dioxide 31 mmol/L (22.0-30.0); Glucose 128 mg/dl (74-100); MANUAL DIFFERENTIAL MANUAL DIFFERENTIAL (MANUAL DIFF)
[2022-02-14 10:44] LABS: Eosinophils % 1 % (0-3); Lymphocytes % 11 % (10-50); Monocytes % 1 % (2-9); Neutrophils % 87 % (42-76); Platelet Estimate Normal; RBC Morphology Normal; Total Cells Counted 100
[2022-02-14 11:53] VITALS: BP 138/79; PULSE 86; RESP 18; TEMP 36.6; O2SAT 97
--- NOTE | 2022-02-14 14:42 | EXP.ACUTE.PN ---
Subjective *Date: 02/14/22 *Time: 14:42 Interval history: Stable on room air this morning. Denies any shortness of breath or chest pain. Diuresing well with over 3 and half liters of output in the past 24 hours. Tolerating p.o. intake without difficulty. Complains of pain in her left leg that is chronic and in her hands. Has had a bowel movement in the past 24 hours. Stools more pasty, would like a stool softener. Denies confusion, nausea, vomiting Medical Exam Vital signs and Labs for Last 24 Hours: Vital Signs Temp Pulse Pulse Resp BP Pulse Ox 02/14/22 11:53 97.8 F 86 18 138/79 97 02/14/22 09:20 89 18 02/14/22 07:58 98.1 F 106 H 18 136/76 100 02/14/22 03:58 98.5 F 100 H 18 125/57 L 92 L 02/13/22 23:50 98.8 F 106 H 17 123/67 92 L 02/13/22 19:54 98.4 F 107 H 16 103/54 L 92 L 02/13/22 16:00 98.7 F 107 H 14 107/61 L 95 Intake and Output 02/13/22 02/14/22 02/14/22 23:59 07:59 15:59 Intake Total 120 / 120 2453 / 2453 Output Total 2150 / 3850 2500 / 2500 Balance -2030 / -3730 -47 / -47 Intake: Intake, Oral Amount 120 / 120 480 / 480 Intake, Total IV Amount 1972 0.9 % Sodium Chloride 1,000 ml 1972 @ 125 mls/hr IV .Q8H [facility] Rx#: [id number] Output: Output, Urine Amount 750 / 2450 2500 / 2500 Output, Urine Amount (Catheter) 1400 / 1400 [place] 1400 / 1400 Other: Number of Unmeasured Voids 0 0 0 Number of Bowel Movements 0 Weight 85.275 kg Patient Weight 02/14/22 23:59 Weight 85.275 kg Laboratory Results - last 24 hr 02/14/22 10:12: WBC 10.2 D, RBC 3.03 L, Hgb 9.0 L, Hct 28.3 L, MCV 93.5, MCH 29.8, MCHC 31.9, RDW 16.6, Plt Count 324, MPV 8.8, Neut % (Auto) 88.6 H, Lymph % (Auto) 8.1 L, [place] % (Auto) 1.0 L, Eos % (Auto) 2.0, Baso % (Auto) 0.3, Neut # (Auto) 9.0 H, Lymph # (Auto) 0.8, [place] # (Auto) 0.1, Eos # (Auto) 0.2, Baso # (Auto) 0.0, Total Counted 100, Neutrophils % (Manual) 87 H, Lymphocytes % (Manual) 11, Monocytes % (Manual) 1 L, Eosinophils % (Manual) 1, Platelet Estimate Normal, RBC Morphology Normal 02/14/22 10:12: Sodium 139, Potassium 3.3 L D, Chloride 101, Carbon Dioxide 31 H, Anion Gap 10.3, BUN 25 H, Creatinine 1.00, Estimated Creat Clear 67, Estimated GFR 54 L, Est GFR ( Amer) 66, Glucose 128 H, Calcium 7.9 L I & O for Labs for Last 24 Hours: Intake & Output 02/11/22 02/12/22 02/13/22 02/14/22 23:59 23:59 23:59 23:59 Intake Total 120 / 120 2453 / 2453 Output Total 3850 / 3850 2500 / 2500 Balance -3730 / -3730 -47 / -47 Weight 87.77 kg 85.275 kg Microbiology Reports for the Last 24 Hours: Microbiology 02/13/22 00:34 Leg,Left Gram Stain - Final 02/13/22 00:34 Leg,Left Wound Culture - Preliminary 02/13/22 00:34 Urine,Catheterized Urine Culture - Preliminary NO GROWTH AFTER 24 HOURS 02/13/22 00:34 Arm,Right Gram Stain - Final 02/13/22 00:34 Arm,Right Wound Culture - Preliminary NO GROWTH AFTER 24 HOURS Constitutional: Present no acute distress, obese, chronically ill appearing and cooperative Head: Present atraumatic and normocephalic ENT: Present normal exam Neck: Present normal inspection Respiratory: Present normal respiratory effort; Absent accessory muscle use, rhonchi, wheezes or crackles Cardiac: Present Reg Rate and Rhythm GI: Present soft and normal bowel sounds; Absent distention or tenderness Extremities: Present full ROM; Absent edema Comment:: Left ma with deep wound to deep tissue. Clean dressing intact. No significant erythema. No warmth or significant edema of bilateral lower extremities Skin: Present intact; Absent erythema Neuro: Present Cranial Nerve 2-12 Intact, Grossly Intact, alert, awake, oriented x 3 and moves all extremities Assessment and Plan *Assessment and plan (1) Diastolic CHF, acute on chronic: Status: Acute Category: Medical
[2022-02-14 16:00] VITALS: BP 98/52; PULSE 82; RESP 16; TEMP 36.8; O2SAT 90
[2022-02-14 16:06] VITALS: BMI 36.8
[2022-02-14 16:32] LABS: POC Glucose,Bedside 185 (70-110)
[2022-02-14 16:32] LABS: POC Glucose,Bedside 192 (70-110)
[2022-02-14 16:32] LABS: POC Glucose,Bedside 144 (70-110)
[2022-02-14 16:32] LABS: POC Glucose,Bedside 96 (70-110)
[2022-02-14 16:32] LABS: POC Glucose,Bedside 232 (70-110)
--- NOTE | 2022-02-14 17:42 | PC.NURSE ---
VS stable, patient weaned too room air. Swelling in both feet reduced from yesterday, pain medication given for pain. No other complaints noted. No fever noted.
[2022-02-14 20:00] VITALS: BP 116/59; PULSE 83; RESP 17; TEMP 36.9; O2SAT 98
[2022-02-14 20:57] LABS: POC Glucose,Bedside 186 (70-110)
[2022-02-15] VITALS: BP 130/71; PULSE 82; RESP 17; TEMP 37.1; O2SAT 96
[2022-02-15 04:00] VITALS: BP 101/63; PULSE 82; RESP 18; TEMP 36.8; O2SAT 94; BMI 37.5
[2022-02-15 05:28] LABS: POC Glucose,Bedside 125 (70-110)
--- NOTE | 2022-02-15 06:06 | PC.NURSE ---
Patient had complaints of pain in leg and back. DC shaw this am. Emptied 250cc before pulling the shaw. Patient tolerated well. Patient has no complaints of pain at this time. Will continue to monitor
[2022-02-15 06:54] LABS: Basophils % 0.3 % (0.1-2.0); Eosinophils # 0.4 K/mm3 (0.0-0.4); Hematocrit 27.9 % (37.0-47.0); Hemoglobin 8.7 g/dL (12.2-16.2); Lymphocytes # 1.2 K/mm3 (0.7-4.5); Lymphocytes % 13.7 % (10-50); Mean Corpuscular HGB Conc 31.2 g/dL (31.8-35.4); Mean Corpuscular Hemoglobin 29.8 pg (27.0-31.2); Mean Corpuscular Volume 95.6 fl (81-99); Monocytes # 0.1 K/mm3 (0.1-1.0); Neutrophils % 80.8 % (37.0-80.0); Platelet Count 321 K/mm3 (142-424); Red Blood Count 2.92 M/mm3 (4.20-5.40); Red Cell Distribution Width 16.8 % (11.5-17.5); White Blood Count 8.6 K/mm3 (4.8-10.8)
[2022-02-15 07:10] LABS: Alanine Aminotransferase 30 U/L (12-78); Albumin Level 2.9 g/dl (3.5-5.0); Alkaline Phosphatase 78 U/L (38-126); Anion Gap 7.9 mEq/L (5-15); Aspartate Amino Transferase 44 U/L (14-36); Bilirubin,Total 0.6 mg/dl (0.2-1.3); Blood Urea Nitrogen 30 mg/dl (7-17); Calcium 7.9 mg/dl (8.4-10.2); Carbon Dioxide 31 mmol/L (22.0-30.0); Chloride 102 mmol/L (98-107); Creatinine Clearance Estimated 57 mL/min (50-200); Estimated Glomerular Filt Rate 44 ml/min (>60); GFR (African American) 53 ML/MIN (>60); Glucose 116 mg/dl (74-100); Magnesium 1.7 mg/dl (1.6-2.3); Sodium 138 mmol/L (136-145); Total Protein,Serum 5.9 g/dl (6.3-8.2)
[2022-02-15 07:13] LABS: Potassium 2.9 mmoL/L (3.5-5.1)
--- NOTE | 2022-02-15 07:31 | PC.NURSE ---
Dr. Galvez aware of potassium 2.9. Orders being placed
--- NOTE | 2022-02-15 07:31 | EXP.DC.SUM ---
General Admission date:: 02/13/22 Discharge date: 02/16/22 HPI HPI HPI: Ms. Hicks is a 71-year-old female who presented to [facility] on 02/12/2021 from [facility] due to fevers and low oxygen saturations at the facility. The patient reports that she is at the [place] undergoing PT falling a fall that resulted in a Left Lower extremity fracture to undergo PT/OT. She reports feeling tired, having shortenss of air and chills over the last day. In the ER, the patient was noted to have wounds on her bilateral lower extremity with some drainage to the wound on the left lower extremity. CT of the LLE showed some soft tissue swelling and ulceration of the anteriolateral aspect of the left lower extremity and ankle compatible with infection but no evidence of abscess. CRP was elevated at 279.0. Orthopedics consulted regarding left lower extremity wound. She reports that the pain is slightly better than previous. She also reports that this wound started after a fall. She is unsure how its progressed over the last couple days. Hospital Course Hospital Course Hospital Course: 71-year-old female presents from [facility] where she is undergoing PT following a recent LLE fracture due to a fall.? She presented with fevers and shortness of air.? LLE with erythema and draining wound on the left, CT concerning for cellulitis with no definitive signs of Osteomyelitis, Cxray concerning for mild Left Lower lobe consolidations. Treated for sepsis, pneumonia, cellulitis. Problems addressed as follows: - Sepsis, resolved - Pneumonia PSI/port score of 103 (risk class IV) on admission. Treated for inpatient management of pneumonia and sepsis. Started on broad-spectrum antibiotics.? Started on vancomycin and cefepime. Tolerated well. Weaned off oxygen 48 hours before discharge. Will transition to Bactrim to complete treatment for pneumonia as well as cellulitis in her leg. White cell count normalized fairly rapidly. Patient overall appears well. Component of CHF and volume overload present given her response to diuresis and improvement in respiration with diuresis. Finish antibiotics with Bactrim for 7 more days. Stable to discharge back to nursing facility. - Left Lower Extremity Cellulitis -Left lower leg laceration Orthopedics and wound consult/PT consulted.? At this time recommend dressing change with silver impregnated dressing every 48 hours.? No wound VAC recommended.? Continue antibiotics with Bactrim to complete 10 days total. Needs 7 more days of oral therapy. Wound culture with mixed braulio, sensitive to Bactrim. Continue wound management per facility wound nurse - Hypertension - Heart failure with preserved ejection fraction -AAA Cardiology consulted, discussed case with them daily. Continue with oral therapy for diastolic dysfunction. Transition to Lasix 40 mg once a day. Discontinue Norvasc. Continue metoprolol 100 mg daily. Continue amiodarone per previous regimen of 3 times a week. Patient needs to continue with screening of her 4.8 cm infrarenal AAA. Defer management to her vascular surgeon in [facility]. Recommend follow-up with her inspector watch assembly within the next month to evaluate stability of volume status and diastolic CHF. Patient stable for discharge home, appears euvolemic at this time. - Hyperlipidemia Will continue statin Anemia -Appears chronic, continue daily iron supplementation, may benefit from daily multivitamin as well. DNR Cardiac diet Last BM 02/16 Discharge back to [facility] for skilled therapy and nursing. Needs continued rehab given her left metatarsal fracture. Exam Data for Last 24 hours Vital signs and Labs for Last 24 Hours: Temp Pulse Resp BP Pulse Ox 98.3 F 82 18 101/63 L 94 L 02/15/22 04:00 02/15/22 04:00 02/15/22 04:00 02/15/22 04:00 02/15/22 04:00 Laboratory Results - last 24 hr 02/13/22 17:11: POC Glucose 96 02/13/22 21:02: POC Glucos
[2022-02-15 08:00] VITALS: BP 110/63; PULSE 93; RESP 20; TEMP 36.6; O2SAT 98
--- NOTE | 2022-02-15 11:35 | HMH.PTEV ---
Physical Therapy Evaluation Rehab PT IP Evaluation Start: 02/15/22 10:02 Freq: ONCE Status: Active Protocol: Document 02/15/22 10:20 PHOLOCO (Rec: 02/15/22 11:35 PHORTRISTON [id number]) Subjective/History History History 71 yowf adm to [facility] with LE cellulitis from a [facility] home where she was undergoing rehab . She reports she had a fall at some point and injured her L LE with a resulting wound. She reports she uses a walker for ambulation at baseline. Requires cam walker on L LE when WBing. Subjective Subjective Pt currently has no c/o. Rehab PT IP Eval Objective Appearance Patient Behavior Appropriate Patient Orientation Person,Place,Time Difficulty following instructions none Speech Pattern Clear Ambulation Patient Able to Ambulate Yes Ambulation Observation IP General Gait Pattern Observation Antalgic Gait Ambulation Distance (feet) 3 Ambulation Assistive Device None Ambulation Ability Minimal x 1 (25% assist) Balance Ability to Arise Able, uses arms to help Sitting Balance Steady, safe Standing Balance Steady, wide stance Dynamic Sitting Balance Ability Good Dynamic Standing Balance Ability Fair Transfers Bed Transfer Ability Minimal x 1 (25% assist) Chair Transfer Ability Minimal x 1 (25% assist) Sit to Stand Bed Transfer Ability Minimal x 1 (25% assist) Sit to Stand Chair Transfer Ability Minimal x 1 (25% assist) Rehab PT IP prob,goals,plan Problems Date of Evaluation: 02/15/22 PT IP Problems Bed Mobility,Transfers,Gait Rehab Potential Rehab Potential Good Plan PT Intervention Plan Bed Mobility,Transfers,Gait, Therapeutic Exercise PT Plan Frequency Daily Duration LOS Discharge Goals Bed Transfer Ability Contact Guard/Hand Hold Sit to Stand Chair Transfer Ability Contact Guard/Hand Hold Ambulation Assistive Device Rolling Walker Ambulation Distance (feet) 10 Discharge Plan PT Discharge Plan Pt is currently most appropriate to return to rehab once medically stable for d/c . G -code Required No Eval Complexity Eval Charge Codes 74479 - Moderate Complexity PHYSICIAN CERTIFICATION: I certify the specified therapy services for Josi Hicks are required
[2022-02-15 11:44] LABS: POC Glucose,Bedside 161 (70-110)
--- NOTE | 2022-02-15 12:19 | HMH.OTEV ---
OT Inpatient Evaluation Rehab OT IP Evaluation Start: 02/15/22 10:02 Freq: ONCE Status: Active Protocol: Document 02/15/22 12:06 ELVIS (Rec: 02/15/22 12:19 ELVIS [id number]) Rehab OT IP Assessment Subjective History Ms. Hicks is a 71-year- old female who presented to [facility] on 02/12/2021 from [facility] due to fevers and low oxygen saturations at the facility. The patient reports that she is at the [facility] undergoing PT falling a fall that resulted in a Left Lower extremity fracture to undergo PT/OT. She reports feeling tired, having shortenss of air and chills over the last day. In the ER, the patient was noted to have wounds on her bilateral lower extremity with some drainage to the wound on the left lower extremity. CT of the LLE showed some soft tissue swelling and ulceration of the anteriolateral aspect of the left lower extremity and ankle compatible with infection but no evidence of abscess. CRP was elevated at 279.0. Orthopedics consulted regarding left lower extremity wound. She reports that the pain is slightly better than previous. She also reports that this wound started after a fall. She is unsure how its progressed over the last couple days.\ I can try to get up. Patient is currently at a correction facility for rehabilitation. Prior, Patient was living in a 1 story home with a friend to helps assist her during mobility. Patient uses RW and w/c to ambulate and maneuver within home. Subjective I can't get up.
[2022-02-15 16:00] VITALS: BP 116/76; PULSE 82; RESP 22; TEMP 36.7; O2SAT 95
[2022-02-15 16:17] LABS: POC Glucose,Bedside 193 (70-110)
--- NOTE | 2022-02-15 17:14 | EXP.ACUTE.PN ---
Subjective *Date: 02/15/22 *Time: 17:14 Interval history: No acute events overnight. Patient has diuresed well with -2 L of output in the past 24 hours. Tolerating p.o. intake. Had a bowel movement this morning. Afebrile overnight. Stable on room air. Denies chest pain, nausea, vomiting, shortness of breath. Still complaining of pain in left leg Medical Exam Vital signs and Labs for Last 24 Hours: Vital Signs Temp Pulse Resp BP Pulse Ox 02/15/22 08:00 97.9 F 93 H 20 110/63 98 02/15/22 04:00 98.3 F 82 18 101/63 L 94 L 02/15/22 00:00 98.8 F 82 17 130/71 96 02/14/22 20:00 98.4 F 83 17 116/59 L 98 Intake and Output 02/15/22 02/15/22 02/15/22 07:59 15:59 23:59 Intake Total 480 / 480 Output Total 1200 / 1200 0 / 1200 Balance -1200 / -720 480 / -720 Intake: Intake, Oral Amount 480 / 480 Output: Output, Urine Amount 1200 / 1200 0 / 1200 Other: Number of Unmeasured Voids 0 1 Weight 86.863 kg Patient Weight 02/15/22 23:59 Weight 86.863 kg Laboratory Results - last 24 hr 02/14/22 20:34: POC Glucose 186 H 02/15/22 05:21: POC Glucose 125 H 02/15/22 06:33: WBC 8.6, RBC 2.92 L, Hgb 8.7 L, Hct 27.9 L, MCV 95.6, MCH 29.8, MCHC 31.2 L, RDW 16.8, Plt Count 321, MPV 9.0, Neut % (Auto) 80.8 H, Lymph % (Auto) 13.7, [place] % (Auto) 1.0 L, Eos % (Auto) 4.0, Baso % (Auto) 0.3, Neut # (Auto) 7.0, Lymph # (Auto) 1.2, [place] # (Auto) 0.1, Eos # (Auto) 0.4, Baso # (Auto) 0.0 02/15/22 06:33: Sodium 138, Potassium 2.9 L*, Chloride 102, Carbon Dioxide 31 H, Anion Gap 7.9, BUN 30 H, Creatinine 1.20 H, Estimated Creat Clear 57, Estimated GFR 44 L, Est GFR ( Amer) 53 L, Glucose 116 H, Calcium 7.9 L, Magnesium 1.7, Total Bilirubin 0.6, AST 44 H, ALT 30, Alkaline Phosphatase 78, Total Protein 5.9 L, Albumin 2.9 L, Globulin 3.0, Albumin/Globulin Ratio 1.0 L 02/15/22 11:36: POC Glucose 161 H 02/15/22 16:09: POC Glucose 193 H I & O for Labs for Last 24 Hours: Intake & Output 02/12/22 02/13/22 02/14/22 02/15/22 23:59 23:59 23:59 23:59 Intake Total 120 / 120 2693 / 2693 480 / 480 Output Total 3850 / 3850 3600 / 3600 1200 / 1200 Balance -3730 / -3730 -907 / -907 -720 / -720 Weight 87.77 kg 85 kg 86.863 kg Microbiology Reports for the Last 24 Hours: Microbiology 02/13/22 11:05 Throat Group A Streptococcus Screen (KARAN) - Final Negative for Group A Streptococcus. 02/13/22 00:34 Leg,Left Gram Stain - Final 02/13/22 00:34 Leg,Left Wound Culture - Preliminary Gram Negative Rods Gram Positive Cocci 02/13/22 00:34 Urine,Catheterized Urine Culture - Final NO GROWTH AFTER 48 HOURS 02/13/22 00:34 Arm,Right Gram Stain - Final 02/13/22 00:34 Arm,Right Wound Culture - Preliminary NO GROWTH AFTER 48 HOURS 02/13/22 00:34 Blood Blood Culture - Preliminary NO GROWTH AFTER 48 HOURS 02/13/22 00:34 Blood Blood Culture - Preliminary NO GROWTH AFTER 48 HOURS Constitutional: Present no acute distress, obese, chronically ill appearing and cooperative Head: Present atraumatic and normocephalic ENT: Present normal exam Neck: Present normal inspection Respiratory: Present normal respiratory effort; Absent accessory muscle use, rhonchi, wheezes or crackles Cardiac: Present Reg Rate and Rhythm GI: Present soft and normal bowel sounds; Absent distention or tenderness Extremities: Present full ROM; Absent edema Comment:: Left ma with deep wound to deep tissue. Clean dressing intact. No significant erythema. No warmth or significant edema of bilateral lower extremities Skin: Present intact; Absent erythema Neuro: Present Cranial Nerve 2-12 Intact, Grossly Intact, alert, awake, oriented x 3 and moves all extremities Assessment and Plan *Assessment and plan (1) Diastolic CHF, acute o
--- NOTE | 2022-02-15 18:04 | PC.NURSE ---
No acute changes, patient remained on room air. VS stables. Lung sounds diminished. Patient able to sit in chair for a couple of hours during shift. Waiting for precert to d/c back to [facility].
[2022-02-15 20:00] VITALS: BP 116/60; PULSE 82; RESP 17; TEMP 36.8; O2SAT 95; O2SAT 97
[2022-02-15 21:38] LABS: POC Glucose,Bedside 145 (70-110)
[2022-02-15 23:48] LABS: MRSA DNA PCR NEGATIVE
[2022-02-16 04:00] VITALS: BP 145/77; PULSE 76; RESP 16; TEMP 36.7; O2SAT 94; BMI 37.8
--- NOTE | 2022-02-16 05:09 | PC.NURSE ---
No changes noted throughout the night.
[2022-02-16 05:50] LABS: POC Glucose,Bedside 97 (70-110)
[2022-02-16 07:43] LABS: Basophils % 0.4 % (0.1-2.0); Eosinophils # 0.3 K/mm3 (0.0-0.4); Eosinophils % 4.3 % (0.1-12.0); Hematocrit 28.9 % (37.0-47.0); Hemoglobin 8.8 g/dL (12.2-16.2); Lymphocytes # 1.2 K/mm3 (0.7-4.5); Lymphocytes % 15.4 % (10-50); Mean Corpuscular HGB Conc 30.4 g/dL (31.8-35.4); Mean Corpuscular Hemoglobin 29.5 pg (27.0-31.2); Mean Platelet Volume 9.2 fl (7.4-10.4); Monocytes # 0.2 K/mm3 (0.1-1.0); Monocytes % 2.9 % (1.7-9.3); Neutrophils % 76.9 % (37.0-80.0); Platelet Count 319 K/mm3 (142-424); Red Blood Count 2.98 M/mm3 (4.20-5.40); Red Cell Distribution Width 16.8 % (11.5-17.5); White Blood Count 7.8 K/mm3 (4.8-10.8)
[2022-02-16 07:45] LABS: Anion Gap 9.7 mEq/L (5-15); Blood Urea Nitrogen 27 mg/dl (7-17); Calcium 8.3 mg/dl (8.4-10.2); Carbon Dioxide 29 mmol/L (22.0-30.0); Chloride 103 mmol/L (98-107); Creatinine Clearance Estimated 63 mL/min (50-200); Estimated Glomerular Filt Rate 49 ml/min (>60); GFR (African American) 59 ML/MIN (>60); Glucose 104 mg/dl (74-100); Potassium 3.7 mmoL/L (3.5-5.1); Sodium 138 mmol/L (136-145)
[2022-02-16 07:56] VITALS: BP 125/64; PULSE 83; RESP 17; TEMP 36.8; O2SAT 99
[2022-02-16 12:07] LABS: POC Glucose,Bedside 157 (70-110)
--- NOTE | 2022-02-16 13:01 | EXP.PHA.PN ---
Subjective *Date: 02/16/22 *Time: 13:01 Medical Exam Vital signs and Labs for Last 24 Hours: Vital Signs Temp Pulse Resp BP Pulse Ox 02/16/22 07:56 98.2 F 83 17 125/64 99 02/16/22 04:00 98.0 F 76 16 145/77 H 94 L 02/15/22 20:00 95 02/15/22 20:00 98.3 F 82 17 116/60 97 02/15/22 16:00 98.1 F 82 22 116/76 95 Intake and Output 02/15/22 02/16/22 02/16/22 23:59 07:59 15:59 Intake Total 240 / 820 200 / 680 480 / 680 Output Total 500 / 1700 800 / 800 Balance -260 / -880 -600 / -120 480 / -120 Intake: Intake, Oral Amount 240 / 720 0 / 480 480 / 480 Intake, Total IV Amount 200 / 200 Cefepime HCl 2 gm In 0.9 % 200 / 200 Sodium Chloride 100 ml @ 200 mls/hr IV Q8H ON LICENSE OF [facility] Rx#:[id number] Output: Output, Urine Amount 500 / 1700 800 / 800 Other: Number of Unmeasured Voids 0 1 Weight 87.345 kg Patient Weight 02/16/22 23:59 Weight 87.345 kg Laboratory Results - last 24 hr 02/13/22 11:05: MRSA (PCR) Negative 02/15/22 16:09: POC Glucose 193 H 02/15/22 21:28: POC Glucose 145 H 02/16/22 05:40: POC Glucose 97 02/16/22 06:47: WBC 7.8, RBC 2.98 L, Hgb 8.8 L, Hct 28.9 L, MCV 97.0, MCH 29.5, MCHC 30.4 L, RDW 16.8, Plt Count 319, MPV 9.2, Neut % (Auto) 76.9, Lymph % (Auto) 15.4, [place] % (Auto) 2.9, Eos % (Auto) 4.3, Baso % (Auto) 0.4, Neut # (Auto) 6.0, Lymph # (Auto) 1.2, [place] # (Auto) 0.2, Eos # (Auto) 0.3, Baso # (Auto) 0.0 02/16/22 06:47: Sodium 138, Potassium 3.7 D, Chloride 103, Carbon Dioxide 29, Anion Gap 9.7, BUN 27 H, Creatinine 1.10 H, Estimated Creat Clear 63, Estimated GFR 49 L, Est GFR ( Amer) 59, Glucose 104 H, Calcium 8.3 L 02/16/22 11:52: POC Glucose 157 H I & O for Labs for Last 24 Hours: Intake & Output 02/13/22 02/14/22 02/15/22 02/16/22 23:59 23:59 23:59 23:59 Intake Total 120 / 120 2693 / 2693 720 / 820 680 / 680 Output Total 3850 / 3850 3600 / 3600 1700 / 1700 800 / 800 Balance -3730 / -3730 -907 / -907 -980 / -880 -120 / -120 Weight 87.77 kg 85 kg 86.863 kg 87.345 kg Microbiology Reports for the Last 24 Hours: Microbiology 02/13/22 00:34 Leg,Left Gram Stain - Final 02/13/22 00:34 Leg,Left Wound Culture - Preliminary Klebsiella pneumoniae Staphylococcus epidermidis 02/13/22 00:34 Arm,Right Gram Stain - Final 02/13/22 00:34 Arm,Right Wound Culture - Preliminary NO GROWTH AFTER 72 HOURS The patient's infection will respond to the chosen ABx?: Yes Is the patient receiving the right drug, dose, and route?: Yes Could a more targeted ABx be ordered?: No (WOUND CX POSITIVE FOR KLEBSIELLA SENSITIVE TO CEFEPIME. WBC WNL NOW.)
== END 2022-02-16 13:00 ==
LOC: ER 01:05 → 2ND 06:24 → ICU 02-14 01:17 → 2ND 02-15 11:08
PROVIDERS: Nurse Practitioner Family; Admitting Provider Internal Medicine Adolescent Medicine; Emergency Provider Emergency Medicine; PCP Family Medicine; Visit Provider Internal Medicine Adolescent Medicine
DX: L03.116 Cellulitis of left lower limb (principal); R29.6 Repeated falls; J18.9 Pneumonia, unspecified organism; I71.40 Abdominal aortic aneurysm, without rupture, unspecified; Z79.899 Other long term (current) drug therapy; I50.33 Acute on chronic diastolic (congestive) heart failure; I11.0 Hypertensive heart disease with heart failure; E78.5 Hyperlipidemia, unspecified; B96.1 Klebsiella pneumoniae [K. pneumoniae] as the cause of diseases classified elsewhere; Z20.822 Contact with and (suspected) exposure to COVID-19; L97.828 Non-pressure chronic ulcer of other part of left lower leg with other specified severity
CPT/HCPCS: G0378; 36415; 51702; 71045; 73620; 73700; 74177; 80048; 80053; 81001; 82803; 82962; 83605; 83735; 83880; 84145; 85007; 85025; 85651; 86140; 87040; 87070; 87077; 87086; 87186; 87205; 87641; 93005; 93306; 93970; 97162; 97165; 97530; 99285; C9803; J3370; Q9967; U0003; U0005